=== PATIENT | female | born 1995 | race Caucasian/White ===

== ENCOUNTER 2018-10-07 20:43 | Inpatient (IN) ==
[2018-10-07] MEDS ORDERED: Lactated Ringers 1,000 ML PRIMARY IV ONE (22:30)
[2018-10-08] MEDS ORDERED: Lactated Ringers-OB Dept 1,000 ML PRIMARY IV SCH (00:42)
[2018-10-08] MEDS ORDERED: Lidocaine 1% 10 MG/ML - 20 ML VIAL SUBCUT PRN (00:42)
[2018-10-08] MEDS ORDERED: ePHEDrine Inj 50 MG/ML AMP IVP PRN (00:42)
[2018-10-08] MEDS ORDERED: TERBUTALINE SULFATE 1 MG/1 ML SDV SUBCUT PRN (00:42)
[2018-10-08] MEDS ORDERED: BUTORPHANOL TARTRATE 2 MG/1 ML VIAL IVP PRN (00:42)
[2018-10-08] MEDS ORDERED: Naloxone Inj 0.01 MG in Sodium Chloride 0.9% vial 1 ML IVP PRN (00:42)
[2018-10-08] MEDS ORDERED: LIDOCAINE W/ SODIUM BICARB 0.5 ML SYR SUBD PRN (00:42)
[2018-10-08] MEDS ORDERED: METHYLERGONOVINE MALEATE 0.2 MG/1 ML VIAL IM PRN (00:42)
[2018-10-08] MEDS ORDERED: CITRIC ACID/SODIUM CITRATE 30 ML CUP PO PRN (00:42)
[2018-10-08] MEDS ORDERED: fentaNYL Inj 100 MCG/2 ML VIAL IV PRN (00:42)
[2018-10-08] MEDS ORDERED: Metoclopramide Inj 10 MG/2 ML VIAL IV PRN (00:42)
[2018-10-08] MEDS ORDERED: FAMOTIDINE 20 MG/2 ML VIAL IVP PRN ×2 (00:42)
[2018-10-08] MEDS ORDERED: diphenhydrAMINE 50 MG/1 ML VIAL IVP PRN ×2 (00:42→05:30)
[2018-10-08] MEDS ORDERED: Nalbuphine Inj 20 MG/ML Ampule IVP PRN ×2 (00:42→05:30)
[2018-10-08] MEDS ORDERED: CALCIUM CARBONATE 500 MG (TUMS) CHEWABLE TABLET PO PRN ×2 (00:42→05:30)
[2018-10-08] MEDS ORDERED: ONDANSETRON 4 MG/2 ML VIAL IVP PRN ×2 (00:42→05:30)
[2018-10-08] MEDS ORDERED: CefOXitin Inj 2 GM in Sodium Chloride 0.9% 100 ML IV PRN (00:42)
[2018-10-08] MEDS ORDERED: MISOPROSTOL 200 MCG TABLET RECTAL PRN (00:42)
[2018-10-08] MEDS ORDERED: LIDOCAINE HCL 2 % 10 ML JELLY URO-JECT TOPICAL PRN ×2 (00:42→05:30)
[2018-10-08] MEDS ORDERED: Carboprost Inj 250 MCG/ML AMP IM PRN (00:42)
[2018-10-08] MEDS ORDERED: NALOXONE 0.4 MG/1 ML VIAL IVP PRN (00:42)
[2018-10-08] MEDS ORDERED: Phenylephrine Inj 50 MCG in Sodium Chloride 0.9% vial 0.5 ML IVP PRN (00:42)
[2018-10-08] MEDS ORDERED: OXYTOCIN 10 UNIT/1 ML IM PRN (00:42)
[2018-10-08 02:38] LABS: Hematocrit [HCT] 38.4 % (37.0-47.0); Hemoglobin [HGB] 13.3 g/dL (12.0-16.0); MEAN CORPUSCULAR HEMOGLOBIN 30.4 PG (27-31); MEAN CORPUSCULAR HGB CONC 34.6 g/dL (33-37); MEAN CORPUSCULAR VOLUME 87.9 FL (81-99); MEAN PLATELET VOLUME 10.5 FL (7.4-12.2); RED BLOOD COUNT 4.37 10^6/uL (4.20-5.40)
[2018-10-08] MEDS: Oxytocin 20 Units + LR 20 UNIT/1,000 ML BAG IV SCH ×2 (04:13→05:28)
--- NOTE | 2018-10-08 05:19 | OB.DEL.SUM ---
<Abby Baumann - Last Filed: 10/08/18 04:47> Delivery Note Delivery Summary: 23 yo G3 now P2012 PPD#0 s/p at 39w0d. She presented in spontaneous labor and was delivered over an intact perineum of a male weighing 8lb 4.5oz with Apgars 7/9. With pushing, she had several audible decelerations with pamela in the 60s. She was started on oxygen and rolled on to her right then left side with some improvement. Upon delivery, a body cord was noted. Cord gas was notable for pH 7.25. Pitocin was started for the 3rd stage and the placenta delivered spontaneously without complication. It was inspected and intact, 3v cord. Her delivery was otherwise complicated only by a right labial abrasion that was hemostatic and not repaired. Delivery supervised by Dr. Paul. <Reese Paul - Last Filed: 10/08/18 05:19> Delivery Note Delivery Summary: Pt presented in labor at 39 6/7 weeks. Uncomplicated course, GBS negative. She pushed for 20 minutes to the delivery of a viable male , over an intact perineum. Body cord noted at delivery. No repair needed. Apgars were 7 at 1 minute and 9 at 5 minutes. Weight as noted above. EBL 300 cc.
--- NOTE | 2018-10-08 05:21 | OB.PROGRES ---
<Abby Baumann - Last Filed: 10/07/18 23:46> Date of Service: 10/07/18 Interval History: 23 yo at 38w6d (EDC 10/15/18 by early ultrasound, per outpatient records) presents with contractions. Patient reports that she has been having intermittent contractions since last week, but around 18:45 tonight, they became more regular and by 20:00 were every 5 mins. The contractions are 2-3/10 in severity, but reports that she has a high pain tolerance. She denies vaginal bleeding or leaking of fluid. She reports normal movement. She also mentions that she has recently had worsened urinary frequency and pe lvic pressure with urination; no true pain or burning sensation, no hematuria. Tries to drink 64oz of fluid every day. This has been complicated only by spotty care (her wo rks on the pipeline; she has been travelling with him). Her OB history is notable for one prior term , uncomplicated, no analgesia. Plans for natural again with this child. Objective - Cervical Exam Cervical Exam: /-2 [place]: q2-3mins --> q4-5mins Heart Rate: 120/moderate/+accels/-decels Heart Rate Interpretation Category: Category I - Vital Signs Last Taken Vital Signs: Vital Signs - Last Taken Temperature 98.6 F 10/07/18 21:19 Pulse Rate 81 10/07/18 21:19 Respiratory Rate 16 10/07/18 21:19 Blood Pressure 132/75 10/07/18 21:19 Pulse Ox 98 10/07/18 21:19 - Additional Details Additional Details: Urine dip: SG 1.030 B pos/antibody screen neg/rubella non-immune/RPR nonreactive/HBsAg neg/HIV neg GBS neg Assessment and Plan - Assessment / Plan Additional Assessment/Plan Details: 23 yo at 38w6d (EDC 10/15/18 by early ultrasound, per outpatient records) presents with contractions, r/o labor. - Afebrile, vitals stable - FHT category 1, reactive - Initially lyle q2-3mins on toco, spaced out to q4-5mins after receiving 1L NS bolus - SVE /-2, which is a slight change from check in office last week, possible latent labor - Given that <39 weeks, will avoid augmentation at this time - No leukocytes, nitrites, or blood on UA concerning for UTI, will continue to monitor symptoms - Will plan on keeping for observation overnight; patient reports hx of fast labor with prior - Plan discussed with Dr. Paul, attending on-call <Reese Paul - Last Filed: 10/08/18 05:21> Objective - Labs CBC and BMP: 10/08/18 02:35 - Vital Signs Last Taken Vital Signs: Vital Signs - Last Taken Temperature 98.1 F 10/08/18 02:30 Pulse Rate 77 10/08/18 02:30 Respiratory Rate 16 10/08/18 02:30 Blood Pressure 120/76 10/08/18 02:30 Pulse Ox 100 10/08/18 02:30 Assessment and Plan - Assessment / Plan Additional Assessment/Plan Details: Discussed pt with James Mo, OB R3. Agree with assessment and plan as noted above. Expectant management.
[2018-10-08] MEDS ORDERED: GLYCERIN/WITCH HAZEL 1 BOX TOPICAL PRN (05:30)
[2018-10-08] MEDS ORDERED: Ondansetron ODT Tab 4 MG TAB PO PRN (05:30)
[2018-10-08] MEDS ORDERED: Oxytocin 20 Units + LR 20 UNIT/1,000 ML BAG IV SCH (05:30)
[2018-10-08] MEDS ORDERED: Lidocaine 1% 10 MG/ML - 20 ML VIAL INTRADERM PRN (05:30)
[2018-10-08] MEDS ORDERED: diphenhydrAMINE 25 MG CAPSULE PO PRN (05:30)
[2018-10-08] MEDS ORDERED: DIPH,PERTUSS,TET(ADACEL) VAC/PF 0.5 ML (Tdap) IM ONE (05:30)
[2018-10-08] MEDS ORDERED: ACETAMINOPHEN 325 MG TABLET PO PRN (05:30)
[2018-10-08] MEDS ORDERED: BENZOCAINE/MENTHOL SPRAY 56 GM BOTTLE TOPICAL PRN (05:30)
[2018-10-08] MEDS ORDERED: LANOLIN HPA 40 GM TUBE TOPICAL PRN (05:30)
[2018-10-08] MEDS: IBUPROFEN 800 MG TABLET PO PRN ×3 (06:44→23:10)
[2018-10-08] MEDS: HYDROcodone-APAP 5 MG -325 MG TABLET PO PRN ×2 (11:18→21:21)
[2018-10-09 05:03] LABS: Hematocrit [HCT] 36.5 % (37.0-47.0); Hemoglobin [HGB] 12.3 g/dL (12.0-16.0); MEAN CORPUSCULAR HEMOGLOBIN 29.9 PG (27-31); MEAN CORPUSCULAR HGB CONC 33.7 g/dL (33-37); MEAN CORPUSCULAR VOLUME 88.8 FL (81-99); MEAN PLATELET VOLUME 11.3 FL (7.4-12.2); RED BLOOD COUNT 4.11 10^6/uL (4.20-5.40)
[2018-10-09] MEDS: IBUPROFEN 800 MG TABLET PO PRN (07:40)
--- NOTE | 2018-10-09 08:53 | DCSUMMARY ---
Hospitalization Summary Admit Date: 10/07/18 Discharge Date: 10/09/18 Primary Diagnosis:: Term , Delivered Delivery Type: Vaginal Hospital Course: Normal labor, delivery, and course. See delivery summary. Discharge to home on PPD 1 in good condition. / Postop Complications: None Arjay Complications: None Exam - Vitals Vital Signs: Vital Signs Temperature 97.9 F Temperature Source Oral Pulse Rate [Pulse Oximeter] 73 Pulse Rate 65 Respiratory Rate 16 Blood Pressure [Right Arm] 114/62 Blood Pressure 114/70 Pulse Ox 99 Oxygen Delivery Method Room Air Height 5 ft 5 in Weight 159 lb 4 oz
[2018-10-09] MEDS ORDERED: DOCUSATE 100 MG CAPSULE PO SCH (09:00)
[2018-10-09] MEDS ORDERED: Prenatal Multivitamin Tab 1 TAB TAB PO SCH (09:00)
== END 2018-10-09 15:52 | disposition home or self-care (01) | DRG 807 ==
LOC: OBOP 20:43 → OBIP 23:23
PROVIDERS: ADMIT Family Medicine; ATTEND Family Medicine